=== PATIENT | male | born 1960 | race Hispanic/Latino ===

== ENCOUNTER 2021-07-21 18:06 | Emergency (ER) | payer BC ==
[2021-07-21] MEDS ORDERED: predniSONE 20 MG TAB PO ONE (18:43)
[2021-07-21] MEDS ORDERED: MORPHINE 4 MG/1 ML INJ IM ONE (18:44)
--- NOTE | 2021-07-21 18:50 | Emergency Department Report ---
HPI - General Chief Complaint: Back Pain/Injury Time Seen by Provider: 07/21/21 18:31 - HPI HPI: 61-year-old male presents to the emergency department with complaint of left lower back pain with radiation down into the left hip and buttock, and down through the left thigh to the knee. The pain is worst at the hip and buttock and is currently 9 out of 10 in intensity. It worsens with bearing weight, ambulation, certain movements. Initially the patient says that he had some upper back pain starting 2 weeks ago when he was detailing his car. He con tinued to work out, do yard work, go walking. Over time the upper back pain resolved and it moved into the lower back. The low back, left hip/buttock and left upper leg pain has been getting aggressively worse since Thursday, 2 days ago. He denies any skin color change, swelling, rash or lesions. 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 He denies any headache, fever, numbness or paresthesias, problems with bowel or bladder, or any other acute neurological changes. He has tried some [id number] NSAIDs over the past 2 days without any relief. ED Past Medical Hx - Past Medical History Previous Medical History?: Yes Hx CVA: Yes Additional medical history: Right carotid artery blockage, Stent in left carotid artery - Surgical History Past Surgical History?: Yes Additional Surgical History: Carotid stent - Medications Home Medications: Home Medications Medication Instructions Recorded Confirmed Last Taken Type Naproxen [Naprosyn] 500 mg PO BID #30 tablet 08/30/16 Unknown Rx methOCARBAMOL [Robaxin TAB] 750 mg PO BID #30 tab 08/30/16 Unknown Rx Cyclobenzaprine [Flexeril] 10 mg PO TID PRN #12 tablet 07/21/21 Unknown Rx predniSONE [Deltasone] 20 mg PO QDAY #5 tab 07/21/21 Unknown Rx ED Review of Systems ROS: Stated complaint: LOWER BACK PAIN Other details as noted in HPI Comment: All other systems reviewed and negative Constitutional: denies: chills, fever Eyes: denies: eye pain, vision change ENT: denies: ear pain, throat pain Respiratory: denies: cough, shortness of breath Cardiovascular: denies: chest pain, palpitations Gastrointestinal: denies: abdominal pain, vomiting Genitourinary: denies: dysuria, discharge Musculoskeletal: back pain, arthralgia, myalgia. denies: joint swelling Skin: denies: rash, lesions Neurological: denies: headache, weakness, numbness, paresthesias Physical Exam - Physical Exam Vital Signs: Vital Signs 07/21/21 18:10 Temperature 97.8 F Pulse Rate 68 Respiratory 20 Rate Blood Pressure 168/73 O2 Sat by Pulse 99 Oximetry Physical Exam: GENERAL: The patient is well-developed well-nourished. HENT: Normocephalic. Atraumatic. Patient has moist mucous membranes. EYES: Extraocular motions are intact. NECK: Supple. Trachea is midline. CHEST/LUNGS: Clear to auscultation. There is no respiratory distress noted. HEART/CARDIOVASCULAR: Regular. There is no tachycardia. There is no murmur. ABDOMEN: Abdomen is soft, nontender. Patient has normal bowel sounds. SKIN: Skin is warm and dry. NEURO: The patient is awake, alert, and oriented. The patient is cooperative. The patient has no focal neurologic deficits. Normal speech. MUSCULOSKELETAL: There is some reproducible tenderness to palpation along the proximal left thigh and left hip, but no obvious deformity. There is no limitation range of motion. Positive left-sided straight leg raise test. BACK: No midline thoracic or lumbar tenderness to palpation. There is reproducible left lumbar paraspinal tenderness with associated taut musculature. ED Course Vital Signs 07/21/21 18:10 Temperature 97.8 F Pulse Rate 68 Respiratory 20 Rate Blood Pressure 168/73 O2 Sat by Pulse 99 Oximetry ED Medical Decision Making - Lab Data Result diagrams: 07/21/21 19:24 07/21/21 19:24 Lab Results 07/21/21 07/21/21 Range/Units 19:24 19:24 WBC 9.3 (4.5-11.0) K/mm3 RBC 4.85 (3.65-5.03) M/mm3 Hgb 15.0 (11.8-15.2) gm/dl Hct 45.1 (35.5-45.6) % MCV 93 (84-94) fl MCH 31 (28-32) pg MCHC 33 (32-34) % RDW 14.6 (13.2-15.2) % Plt Count 207 (140-440) K/mm3 Lymph % (Auto) 26.6 (13.4-35.0) % [place] % (Auto) 9.0 H (0.0-7.3) % Eos % (Auto) 2.6 (0.0-4.3) % Baso % (Auto) 0.6 (0.0-1.8) % Lymph # (Auto) 2.5 (1.2-5.4) K/mm3 [place] # (Auto) 0.8 (0.0-0.8) K/mm3 Eos # (Auto) 0.2 (0.0-0.4) K/mm3 Baso # (Auto) 0.1 (0.0-0.1) K/mm3 Seg Neutrophils % 61.2 (40.0-70.0) % Seg Neutrophils # 5.7 (1.8-7.7) K/mm3 Sodium 139 (137-145) mmol/L Potassium 4.0 (3.6-5.0) mmol/L Chloride 103.8 (98-107) mmol/L Carbon Dioxide 22 (22-30) mmol/L Anion Gap 17 mmol/L BUN 18 (9-20) mg/dL Creatinine 1.2 (0.8-1.3) mg/dL Estimated GFR > 60 ml/min BUN/Creatinine Ratio 15 % Glucose 93 (75-100) mg/dL Calcium 9.0 (8.4-10.2) mg/dL - Radiology Data Radiology results: image reviewed interpreted by me: X-ray of the lumbar spine does not show any fracture, dislocation, subluxation, or any acute process. X-ray left femur does not show any fracture, dislocation, or any acute process. - Medical Decision Making This patient presents with pain from the left hip and buttock that radiates down the left leg to about the knee. No trauma or injury. There is some reproducible tenderness to palpation along the left thigh and left hip but no obvious deformity. No midline thoracic or lumbar tenderness to pa lpation but there is reproducible left lumbar paraspinal tenderness to palpation with associated taut musculature. X-rays were done of the lumbar spine and left femur that did not show any fracture, subluxation, dislocation, osteomyelitis, subcutaneous gas, or any other acute processes. Labs have been unremarkable including CBC and metabolic panel. Overall this appears consistent with sciatica or some radicular pain. He does not appear to have any of the emergent back condition such as cauda equina, epidural abscess or cord compression syndrome. The patient does not have any numbness or paresthesias, problems with bowel or bladder, restriction to range of motion. He is afebrile and there is no leukocytosis. He was given a dose of IM analgesia and a dose of steroids with some improve ment. He will be given a prescription for prednisone and a muscle relaxer. He has also been given outpatient referral for a local orthopedic group and a neurosurgeon. He will return to the emergency department with any worsening of symptoms or with any acute distress. Critical Care Time: No Critical care attestation.: If time is entered above; I have spent that time in minutes in the direct care of this critically ill patient, excluding procedure time. ED Disposition Clinical Impression: Radicular pain of left lower extremity Hypertension Qualifiers: Hypertension type: primary hypertension Qualified Code(s): I10 - Essential (primary) hypertension Disposition: HOME / SELF CARE / HOMELESS Is pt being admited?: No Condition: Stable Instructions: Radicular Pain, Hypertension, Adult, Hypertension (ED) Additional Instructions: I am giving you a referral for a local orthopedic group, [facility], as well as a local neurosurgeon, Dr. Beavers, to follow-up regarding your left back, hip and leg pain. You have been prescribed a medication that is sedating and therefore should not be taken prior to driving, working, and responsible for children and in no way should be mixed with alcohol of any quantity. Return to the emergency department with any worsening of your symptoms, new or concerning symptoms not addressed during this current emergency department visit, or with any acute distress. Prescriptions: predniSONE [Deltasone] 20 mg PO QDAY #5 tab Cyclobenzaprine [Flexeril] 10 mg PO TID PRN #12 tablet PRN Reason: Muscle Spasm Referrals: ERON BEAVERS II, MD [Staff Physician] - 3-5 Days [facility] [Provider Group] - 3-5 Days Time of Disposition: 21:23
--- NOTE | 2021-07-21 19:37 | XRay Report ---
XR femur 2+V LT INDICATION / CLINICAL INFORMATION: LLE pain. COMPARISON: None available. FINDINGS: No acute fracture. Normal alignment. Joint spaces are preserved. No destructive osseous lesion or s uspicious periosteal reaction. Impression: 1.No significant osseous abnormality. Signer Name: Jose Steen MD Signed: 07/21/2021 7:33 PM Workstation Name: [id number]
--- NOTE | 2021-07-21 19:38 | XRay Report ---
XR spine lumbosacral 2-3V HISTORY: back pain COMPARISON: None. TECHNIQUE: 3 view(s) of the lumbar spine obtained. FINDINGS: Vertebrae: Mild leftward curvature of the spine with apex at L4. Vertebral body heights are preserved . Spondylosis:Mild multilevel spondylosis. IMPRESSION: 1. No acute abnormality of the lumbar spine. Signer Name: Jose Steen MD Signed: 07/21/2021 7:33 PM Workstation Name: [id number]
[2021-07-21 19:58] LABS: Basophils # (Auto) 0.1 K/mm3 (0.0-0.1); Basophils % (Auto) 0.6 % (0.0-1.8); Eosinophils # (Auto) 0.2 K/mm3 (0.0-0.4); Eosinophils % (Auto) 2.6 % (0.0-4.3); Hematocrit 45.1 % (35.5-45.6); Lymphocytes # (Auto) 2.5 K/mm3 (1.2-5.4); Lymphocytes % (Auto) 26.6 % (13.4-35.0); Mean Corpuscular HGB Conc 33 % (32-34); Mean Corpuscular Volume 93 fl (84-94); Monocytes # (Auto) 0.8 K/mm3 (0.0-0.8); Platelet Count 207 K/mm3 (140-440); Red Blood Count 4.85 M/mm3 (3.65-5.03); Red Cell Distribution Width 14.6 % (13.2-15.2)
[2021-07-21 20:43] LABS: BUN/Creatinine Ratio 15; Blood Urea Nitrogen 18 mg/dL (9-20); Hemolysis Index 18
[2021-07-21 22:21] VITALS: BP 128/84
== END 2021-07-21 22:09 | disposition home or self-care (01) ==
LOC: ED 18:06
DX: M54.10 Radiculopathy, site unspecified (principal); I10 Essential (primary) hypertension; Z86.73 Personal history of transient ischemic attack (TIA), and cerebral infarction without residual deficits
CPT/HCPCS: 36415; 72100; 73552; 80048; 85025; 96372; 99284; J2270; J7512